=== PATIENT | male | born 1950 | race Caucasian/White ===

== ENCOUNTER 2021-03-08 12:34 | Outpatient (CLI) | payer OTHER | END 2021-03-08 23:59 | disposition home or self-care (01) | LOC: LAB 12:34 | PROVIDERS: ATTEND Specialist | DX: Z01.812 Encounter for preprocedural laboratory examination (principal); Z20.822 Contact with and (suspected) exposure to COVID-19 | CPT/HCPCS: C9803; U0003 ==

== ENCOUNTER 2021-03-14 05:03 | Inpatient (IN) | payer OTHER ==
[~2021-03-14] VITALS: Ht 162.6 cm; Wt 57.6 kg
[~2021-03-14 05:03] MED LIST: ANESTHESIA TRAY IN PYXIS 1 EA TRAY MC ONE; BUPIVACAINE 0.5 % PF 150 MG/30 ML VIAL ONE; POLYMYXIN B SULFATE 500,000 UNITS ONE
--- NOTE | 2021-03-14 05:10 | NUR ---
PIPE JOINTS SUPERVISOR NOTES PATIENT ARRIVED ON FLOOR FOR RIGHT TOTAL KNEE ARTHROPLASTY SURGERY. PATIENT ALERT/ORIENTED X 4, PT ABLE TO MAKE NEEDS KNOWN. PT AMBULATORY WITH WALKER. PATIENT DENIES MEDICAL HISTORY, NO ALLERGIES, DOESN'T TAKE MEDICATIONS AT HOME. PT STATES HE HAD ONE COVID-19 VACCINE BUT DOESN'T REMEMBER WHICH ONE, PT HAD FLU VACCINE. PT BELONGINGS CHARTED AND ACCOUNTED FOR. PATIENT NPO SINCE 8/ PM. LAST VOID THIS AM AT 0515. ORIENTED PATIENT TO ROOM AND HOW TO USE CALL LIGHT. MRSA SWAB DONE, BOTH NARES. SAFETY MEASURES IN PLACE, CALL LIGHT WITHIN REACH, BED ALARM ON. WILL CONTINUE TO MONITOR
[2021-03-14] MEDS ORDERED: TRANEXAMIC ACID 3,000 MG in SODIUM CHLORIDE IRRIG SOLUTION 70 ML IR ONE (06:30)
[2021-03-14] MEDS ORDERED: MORPHINE SULFATE/PF 10 MG/10ML (1MG/ML) AMPUL ONE (06:38)
[2021-03-14] MEDS ORDERED: FENTANYL PF 100MCG/2ML AMPUL ONE (06:38)
[2021-03-14] MEDS ORDERED: ZOLPIDEM TARTRATE 5 MG TABLET PO PRN (09:30)
[2021-03-14] MEDS ORDERED: ACETAMINOPHEN 325 MG TABLET PO PRN (09:30)
[2021-03-14] MEDS ORDERED: IV D5/0.45 NACL 1,000 ML IV PRN (09:30)
[2021-03-14] MEDS ORDERED: HYDROCODONE/APAP 5/325MG TABLET PO PRN (09:30)
[2021-03-14] MEDS ORDERED: ONDANSETRON HCL/PF 4 MG/2 ML VIAL IVP PRN ×2 (09:30→10:00)
[2021-03-14] MEDS ORDERED: DOCUSATE SODIUM 250 MG CAPSULE PO PRN (09:30)
[2021-03-14] MEDS ORDERED: BISACODYL SUPP (10 MG) 10 MG/SUPP.RECT SUPP.RECT RC PRN (09:30)
[2021-03-14] MEDS ORDERED: SENNOSIDES 8.6 MG TABLET PO PRN (09:30)
--- NOTE | 2021-03-14 09:30 | NUR ---
RN NOTE PT CAME BACK FROM SURGERY FOR RIGHT TOTAL KNEE ARTHROPLASTY BY DR CHOUDHURY. PT AOX4 , SATTING 97% ON RA, ASKED IF HE WANTED O2 NC BUT REFUSED STATING HE DOESNT NEED IT. PT HAS NO C/O PAIN OR SHORTNESS OF BREATH AT THIS TIME. PT EDUCATED ON S/S OF COMPARTMENTALISM AND TO MOVE EXTREMITY AND TOES NEEDED. EDUCATED ON INCENTIVE SPIROMETER USE AND HOW OFTEN. PT DENIED PAIN AT THIS TIME BUT INFORMED IF HE HAS ANY PAIN HE WILL LET US KNOW. CALL LIGHT WITHIN REACH AND EDUCATED ON USE, FAMILY AT BEDSIDE.
[2021-03-14 10:00] VITALS: BP 124/84
[2021-03-14] MEDS ORDERED: oxyCODONE IR immediate release 5 MG PO PRN (10:00)
[2021-03-14] MEDS ORDERED: ANESTHESIA TRAY IN PYXIS 1 EA TRAY MC ONE (10:50)
[2021-03-14] MEDS: DRONABINOL (2.5 MG) 2.5 MG CAPSULE PO SCH (11:20)
[2021-03-14] MEDS ORDERED: CLONIDINE HCL 0.1 MG TABLET PO PRN (11:30)
[2021-03-14] MEDS ORDERED: diphenhydrAMINE HCL 25 MG CAPSULE PO PRN (11:30)
[2021-03-14] MEDS ORDERED: MAG HYDROX/AL HYDROX/SIMETH 30 ML UDC PO PRN (11:30)
[2021-03-14] MEDS ORDERED: MENTHOL/CETYLPYRD (CEPACOL) 1 LOZ LOZENGE PO PRN (11:30)
[2021-03-14] MEDS: ANCEF 1 GM/50 ML D5W IV SCH ×2 (14:18→22:07)
[2021-03-14 16:00] VITALS: BP 104/68
[2021-03-14] MEDS: DOCUSATE SODIUM 100 MG CAPSULE PO SCH (16:49)
--- NOTE | 2021-03-14 19:55 | NUR ---
MS RN Opening Notes Patient was last seen awake in his room walking. Patient's alert and oriented x4. Patient's on room air with no respiratory distress noted. Patient's in no acute distress at this time. Safety measures in place: Bed locked, bed alarm on, side rails up x3, and call light within reach of the patient. Will continue to monitor the patient.
[2021-03-14 20:00] VITALS: BP_SYST 106; BP_SYST 108; BP_DIAS 69; BP_DIAS 78
[2021-03-14] MEDS: FAMOTIDINE (20 MG) 20 MG TABLET PO SCH (21:08)
[2021-03-15 06:15] LABS: CALCIUM, SERUM 7.7 mg/dL (8.5-10.1); CREATININE 0.8 mg/dL (0.6-1.3); POTASSIUM 3.9 mmol/L (3.5-5.1)
[2021-03-15 06:52] LABS: BASOPHILS % (AUTO) 0.2 % (0.0-2.0); EOSINOPHILS % (AUTO) 0.6 % (0.0-6.0); HEMATOCRIT 33 % (39-51); HEMOGLOBIN 11.5 g/dL (13.5-17.5); MEAN CORPUSCULAR HGB CONC 35 g/dl (31.0-36.0); MEAN CORPUSCULAR VOLUME 89 fL (80-96); MONOCYTES # (AUTO) 0.9 K/uL (0.1-1.30); MONOCYTES % (AUTO) 15.1 % (2.0-12.0); NEUTROPHILS # (AUTO) 4.1 K/uL (1.8-8.9); NEUTROPHILS % (AUTO) 68.1 % (43.0-81.0); PLATELET COUNT (AUTO) 246 K/uL (150-450); RED BLOOD CELL COUNT(AUTO) 3.71 MIL/uL (4.5-6.0)
[2021-03-15 07:11] LABS: THYROID STIMULATING HORMONE 0.759 uIU/mL (0.358-3.74)
--- NOTE | 2021-03-15 08:00 | NUR ---
MS RN Opening Notes Report received. Assessment complete. Received pt in stable condition. Vss, afebrile, no sob noted. Patient's alert and oriented x4, able to make needs known. Patient is stable on room air. Iv to LAC patent and infusing D%1/2 NS at 125ml/hr. Schmidt catheter in place, patent and draining clear yellow urine. Safety measures in place: Bed locked, bed alarm on, side rails up x2, and call light within reach of the patient. Will continue to monitor the patient.
[2021-03-15 08:18] VITALS: BP 118/76
[2021-03-15] MEDS: DRONABINOL (2.5 MG) 2.5 MG CAPSULE PO SCH (08:42)
[2021-03-15] MEDS: FAMOTIDINE (20 MG) 20 MG TABLET PO SCH ×2 (08:42→20:18)
[2021-03-15] MEDS: ASPIRIN 325 MG TABLET PO SCH (08:42)
[2021-03-15] MEDS: DOCUSATE SODIUM 100 MG CAPSULE PO SCH ×2 (08:42→16:33)
[2021-03-15] MEDS ORDERED: OXYC-133 PO (09:07)
--- NOTE | 2021-03-15 09:46 | NUR ---
RN NOTE: EMESIS 30 CC EMESIS. MEDICATED WITH ZOFRAN 2MG IVP.
[2021-03-15 10:32] LABS: EOSINOPHILS % (MANUAL) 1 % (0-4); LYMPHOCYTES % (MANUAL) 12 % (16-48); MONOCYTES % (MANUAL) 17 % (0-11.0); NEUTROPHILS % (MANUAL) 70 (42-76)
[2021-03-15] MEDS: HYDROMORPHONE 1 MG/1 ML DISP.SYRIN IV PRN ×2 (10:39→14:37)
--- NOTE | 2021-03-15 10:40 | NUR ---
RN NOTE: PAIN PT C/O 04/15 RIGHT KNEE PAIN AFTER AMBULATION. REQUESTING PAIN MEDICATION. MEDICATED WITH DILAUDID 1MG IVP.
[2021-03-15] MEDS ORDERED: TAMSULOSIN 0.4 MG CAP.SR.24H PO ONE (11:04)
[2021-03-15] MEDS ORDERED: IV NS 0.9% 1,000 ML IV ONE (11:30)
--- NOTE | 2021-03-15 11:30 | NUR ---
RN Note: Schmidt catheter d/c'd
[2021-03-15] MEDS: TAMSULOSIN 0.4 MG CAP.SR.24H PO SCH ×2 (11:42→21:36)
[2021-03-15] MEDS ORDERED: ASPI-869 PO (13:11)
--- NOTE | 2021-03-15 14:38 | NUR ---
RN NOTE: PAIN PT C/O 04/15 RIGHT KNEE PAIN. REQUESTING PAIN MEDICATION. MEDICATED WITH DILAUDID 0.5 MG IVP PRN.
[2021-03-15 16:32] VITALS: BP 152/97
[2021-03-15] MEDS: oxyCODONE IR immediate release 5 MG PO PRN ×2 (16:34→20:18)
--- NOTE | 2021-03-15 16:34 | NUR ---
RN NOTE: PAIN PT C/O 02/12 RIGHT KNEE PAIN. MEDICATED WITH OXYCODONE 10 MG PO PRN.
[2021-03-15 16:51] LABS: CALCIUM, SERUM 7.5 mg/dL (8.5-10.1); CREATININE 0.7 mg/dL (0.6-1.3); POTASSIUM 3.5 mmol/L (3.5-5.1)
[2021-03-15 18:01] LABS: THYROID STIMULATING HORMONE 1.218 uIU/mL (0.358-3.74)
--- NOTE | 2021-03-15 18:49 | NUR ---
RN NOTE: UA COLLECTED AND SENT TO LAB.
--- NOTE | 2021-03-15 19:00 | NUR ---
Patient in room A&Ox4. Family at bedside. educated about hyponatremia. Pt states pain to R knee is tolerable. no other issues at this time. will monitor closely.
[2021-03-15 20:00] VITALS: BP 139/96
[2021-03-15 22:04] LABS: BILIRUBIN,URINE NEGATIVE (NEGATIVE); COLOR,URINE YELLOW (YELLOW); LEUKOCYTE ESTERASE ,URINE NEGATIVE (NEGATIVE); NITRITE, URINE NEGATIVE (NEGATIVE); PH,URINE 7.5 (5.0-8.0); PROTEIN,URINE NEGATIVE (NEGATIVE); UGLUCOSE 100 MG/DL mg/dL (NEGATIVE); UROBILINOGEN,URINE 0.2 EU/dL (0.2)
[2021-03-15 22:07] LABS: BACTERIA,URINE None seen /HPF (None Seen); MUCUS,URINE Few /LPF (None Seen); RBC,URINE 0-2 /HPF (0-2); SQUAMOUS EPITHELIAL CELL,UR None Seen /HPF (None Seen); URINE AMORPHOUS PHOSPHATES Few /HPF (None Seen); WBC,URINE 0-2 /HPF (0-3)
--- NOTE | 2021-03-16 00:30 | NUR ---
Patient continues to have fever despite tylenol and cooling measures. HR also continues to go up. currently 113. certified nurse practitioner made aware with new order vanco 1g IV NOW and starting in AM Vancomycin IV pharmacy to dose.
--- NOTE | 2021-03-16 01:42 | NUR ---
reassessed temp 99.0
[2021-03-16] MEDS ORDERED: VANCOMYCIN 1 GM in IV D5W 250 ML IV ONE (02:00)
[2021-03-16] MEDS ORDERED: VANCOMYCIN 1 GM VIAL ONE (02:24)
--- NOTE | 2021-03-16 07:00 | NUR ---
Patient tolerated IV ABX well. Only asked for pain medication x1. states that pain has been tolerable since. Fever resolved.
[2021-03-16] MEDS: ASPIRIN 325 MG TABLET PO SCH (09:01)
[2021-03-16] MEDS: FAMOTIDINE (20 MG) 20 MG TABLET PO SCH ×2 (09:01→21:06)
[2021-03-16] MEDS: DRONABINOL (2.5 MG) 2.5 MG CAPSULE PO SCH (09:01)
[2021-03-16] MEDS: DOCUSATE SODIUM 100 MG CAPSULE PO SCH ×2 (09:01→16:34)
[2021-03-16] MEDS ORDERED: oxyCODONE IR immediate release 5 MG PO ONE (11:09)
[2021-03-16 11:43] LABS: CALCIUM, SERUM 7.6 mg/dL (8.5-10.1); CREATININE 0.8 mg/dL (0.6-1.3); POTASSIUM 3.9 mmol/L (3.5-5.1)
[2021-03-16] MEDS ORDERED: VANCOMYCIN 0.75 GM in IV D5W 250 ML IV SCH (14:00)
[2021-03-16 20:00] VITALS: BP 125/73
--- NOTE | 2021-03-16 20:00 | NUR ---
RN OPENING RECEIVED PATIENT IN BED. A/OX4. NO S/S OF APPARENT DISTRESS IN ROOM AIR. NO C/O PAIN AT THIS TIME. POTASSIUM CHLORIDE RUNNING AT THIS TIME. SAFETY IN PLACE. WILL CONTINUE TO MONITOR.
[2021-03-16] MEDS: oxyCODONE IR immediate release 5 MG PO PRN (21:47)
[2021-03-16] MEDS: TAMSULOSIN 0.4 MG CAP.SR.24H PO SCH (21:48)
--- NOTE | 2021-03-17 00:48 | NUR ---
MS RN NOTE CRITICAL SODIUM LEVEL REPORTED TO DR. LOPEZ AT THIS TIME. LAB VALUE PREVIOUSLY LOW. NO NEW ORDERS AT THIS TIME. LAB VALUE ASSESSMENT FILLED UP IN INTERVENTIONS.
[2021-03-17] MEDS: HYDROMORPHONE 1 MG/1 ML DISP.SYRIN IV PRN (02:08)
--- NOTE | 2021-03-17 02:13 | NUR ---
MS RN NOTE PATIENT C/O 8/10 PAIN. GIVEN DILAUDID 0.5 MG. WILL REASSESS.
[2021-03-17] MEDS: Potassium Chloride 20 MEQ in IV NS 0.9% 1,000 ML IV PRN ×2 (04:30→21:37)
[2021-03-17] MEDS: oxyCODONE IR immediate release 5 MG PO PRN (06:17)
--- NOTE | 2021-03-17 06:17 | NUR ---
MS RN NOTES PATIENT C/O 7/10 PAIN. GIVEN OXYCODONE 10 MG PRN AT THIS TIME. WILL REASSESS.
[2021-03-17 06:32] LABS: BASOPHILS % (AUTO) 0.2 % (0.0-2.0); EOSINOPHILS % (AUTO) 0.5 % (0.0-6.0); HEMATOCRIT 30 % (39-51); HEMOGLOBIN 10.7 g/dL (13.5-17.5); LYMPHOCYTES # (AUTO) 0.5 K/uL (0.8-4.8); LYMPHOCYTES % (AUTO) 10.4 % (20.0-44.0); MEAN CORPUSCULAR HGB CONC 36 g/dl (31.0-36.0); MEAN CORPUSCULAR VOLUME 86 fL (80-96); MONOCYTES # (AUTO) 0.5 K/uL (0.1-1.30); MONOCYTES % (AUTO) 10.7 % (2.0-12.0); NEUTROPHILS # (AUTO) 3.7 K/uL (1.8-8.9); NEUTROPHILS % (AUTO) 78.2 % (43.0-81.0); PLATELET COUNT (AUTO) 204 K/uL (150-450); RED BLOOD CELL COUNT(AUTO) 3.47 MIL/uL (4.5-6.0); WHITE BLOOD COUNT (AUTO) 4.8 K/uL (4.3-11.0)
--- NOTE | 2021-03-17 06:51 | NUR ---
MS RN CLOSING NOTE 315 PATIENT IN BED. A/OX4. NO S/S OF APPARENT DISTRESS. NO C/O PAIN AT THIS TIME PAIN MANAGED WITH MEDICATIONS. POTASSIUM CHLORIDE IN NS RUNNING AT THIS TIME. ALL NEEDS ATTENDED. ALL SCHED MEDICATION ADMINISTERED. SAFETY KEPT IN PLACE THE WHOLE SHIFT. NO SIGNIFICANT CHANGE SINCE LAST SHIFT. WILL ENDORSE CARE TO MORNING SHIFT RN.
[2021-03-17 06:55] LABS: CALCIUM, SERUM 7.7 mg/dL (8.5-10.1); CREATININE 0.7 mg/dL (0.6-1.3); MAGNESIUM 1.9 mg/dL (1.8-2.4)
--- NOTE | 2021-03-17 07:30 | NUR ---
RN-NOTES RECEIVED PATIENT LYING IN BED AWAKE.ALERT X4 CALM,NO ACUTE DISTRESS NOTED. LFA IV SITE AND MIDLINE ON NOHELIA INTACT NO S/S OF COMPLICATION NOTED AT THIS TIME. WILL CONT, MONITORING FOR SAFETY .
[2021-03-17 08:00] VITALS: BP 94/63
[2021-03-17] MEDS: ASPIRIN 325 MG TABLET PO SCH (09:23)
[2021-03-17] MEDS: DOCUSATE SODIUM 100 MG CAPSULE PO SCH ×2 (09:23→17:16)
[2021-03-17] MEDS: FAMOTIDINE (20 MG) 20 MG TABLET PO SCH ×2 (09:23→21:37)
[2021-03-17] MEDS: DRONABINOL (2.5 MG) 2.5 MG CAPSULE PO SCH (09:23)
[2021-03-17 16:00] VITALS: BP 104/61
--- NOTE | 2021-03-17 18:16 | NUR ---
RN-NOTES PATIENT LYING IN BED WATCHING TV ,NO ACUTE DISTRESS NOTED. PATIENT IV LINE ON LAC INTACT NO S/S OF COMPLICATION NOTED AT THE SITE AT THIS TIME. PATIENT A/O X4 ABLE TO AMBULATE IN THE BATHROOM USING WALKER. ENCOURAGED TO REPOSITION 2 HR TO PREVENT FROM DEVELOPING SORES. PATIENT VERBALIZED UNDERSTANDING. CALL LIGHT WITHIN REACH.ALL NEEDS ATTENDED AND ANTICIPATED. WILL ENDORSE TO INCOMING NURSE FOR CONTINUITY OF CARE..
[2021-03-17 20:00] VITALS: BP 118/74
--- NOTE | 2021-03-17 20:00 | NUR ---
MS RN OPENING NOTE PATIENT A/OX4; ABLE TO MAKE NEEDS KNOWN. TOLERATING ROOM AIR WELL WITH NO SOB. DENIES PAIN OR DISCOMFORT AT THIS TIME. LAC #20G S/L; PATENT AND INTACT. SAFETY MEASURES IN PLACE: BED IN LOWEST LOCKED POSITION, SIDE RAILS UPX2, CALL LIGHT WITHIN EASY REACH, BED ALARMS ON. PATIENT IN STABLE CONDITION; WILL CONT. PLAN OF CARE.
[2021-03-17] MEDS: TAMSULOSIN 0.4 MG CAP.SR.24H PO SCH (21:37)
--- NOTE | 2021-03-17 22:18 | NUR ---
MS RN NOTE - CONSTIPATION PT C/O CONSTIPATION. LAST BM WAS 03/15/21. ADMINISTERED SENNA ORDERED. WILL REASSESS FOR BM THROUGHOUT THE SHIFT.
--- NOTE | 2021-03-18 06:47 | NUR ---
MS RN CLOSING NOTE PATIENT A/OX4; ABLE TO MAKE NEEDS KNOWN. TOLERATING ROOM AIR WELL WITH NO SOB. DENIES PAIN OR DISCOMFORT AT THIS TIME. LAC #20G KCL 20MEQ IN NS @100ML/HR; PATENT AND INTACT. SAFETY MEASURES IN PLACE: BED IN LOWEST LOCKED POSITION, SIDE RAILS UPX2, CALL LIGHT WITHIN EASY REACH, BED ALARMS ON. PATIENT IN STABLE CONDITION; WILL ENDORSE CONT. PLAN OF CARE TO ONCOMING MORNING RN.
[2021-03-18 07:12] LABS: BASOPHILS % (AUTO) 0.3 % (0.0-2.0); EOSINOPHILS % (AUTO) 0.7 % (0.0-6.0); HEMATOCRIT 27 % (39-51); HEMOGLOBIN 9.9 g/dL (13.5-17.5); LYMPHOCYTES # (AUTO) 0.5 K/uL (0.8-4.8); LYMPHOCYTES % (AUTO) 10.6 % (20.0-44.0); MEAN CORPUSCULAR HGB CONC 37 g/dl (31.0-36.0); MEAN CORPUSCULAR VOLUME 88 fL (80-96); MONOCYTES # (AUTO) 0.6 K/uL (0.1-1.30); MONOCYTES % (AUTO) 14.4 % (2.0-12.0); NEUTROPHILS # (AUTO) 3.1 K/uL (1.8-8.9); PLATELET COUNT (AUTO) 264 K/uL (150-450); RED BLOOD CELL COUNT(AUTO) 3.08 MIL/uL (4.5-6.0); WHITE BLOOD COUNT (AUTO) 4.3 K/uL (4.3-11.0)
[2021-03-18 07:35] LABS: CALCIUM, SERUM 7.8 mg/dL (8.5-10.1); CREATININE 0.7 mg/dL (0.6-1.3); MAGNESIUM 2.1 mg/dL (1.8-2.4); POTASSIUM 3.8 mmol/L (3.5-5.1)
[2021-03-18] MEDS: ASPIRIN 325 MG TABLET PO SCH (09:23)
[2021-03-18] MEDS: DOCUSATE SODIUM 100 MG CAPSULE PO SCH (09:23)
[2021-03-18] MEDS: FAMOTIDINE (20 MG) 20 MG TABLET PO SCH (09:23)
[2021-03-18] MEDS: DRONABINOL (2.5 MG) 2.5 MG CAPSULE PO SCH (09:24)
[2021-03-18 09:44] VITALS: BP 119/76
--- NOTE | 2021-03-18 15:00 | NUR ---
MS DISCHARGE NOTE: DISCHARGED PT HOME WITH HIS SON KANDI PRIVATE CAR. PROPERTY RETURNED. PRESCRIPTIONS SENT ELECTRONICALLY TO PREFERRED PHARMACY. VSS. NO PAIN OR DISTRESS AT TIME OF DISCHARGE. EXIT CARE TEACHINGS PROVIDED
== END 2021-03-18 15:00 | disposition home health service (06) | DRG 470 ==
LOC: DS 05:03 → MED 05:12
PROVIDERS: ADMIT Nurse Practitioner Acute Care; ATTEND Nurse Practitioner Family
PROC: 0SRC0J9 Replacement of Right Knee Joint with Synthetic Substitute, Cemented, Open Approach (ICD-10-PCS; principal; 2021-03-14)
DX: M17.11 Unilateral primary osteoarthritis, right knee (principal); E87.1 Hypo-osmolality and hyponatremia; R03.0 Elevated blood-pressure reading, without diagnosis of hypertension; Y99.0 Civilian activity done for income or pay; W19.XXXA Unspecified fall, initial encounter; Z79.82 Long term (current) use of aspirin; Z79.899 Other long term (current) drug therapy
CPT/HCPCS: 36415; 80048-TC; 80202-TC; 81001; 82533; 82962-TC; 83735-TC; 84295-TC; 84300-TC; 84439-TC; 84443-TC; 85025-TC; 87081-TC; 88305-TC; 88311-TC; 97110-TC; 97112-TC; 97116-TC; 97530-TC; 97760-TC; A4217; G0378; J0690; J1100; J1170; J1885; J2274; J2405; J2704; J3010; J3370; J3480; J3490; J7030; J7042; J7050; J7060; Q0167

== ENCOUNTER 2021-09-22 09:00 | Outpatient (CLI) | payer OTHER ==
[~2021-09-22 09:00] MED LIST changes: -ANESTHESIA TRAY IN PYXIS 1 EA TRAY MC ONE; +ASPI-869 PO; -BUPIVACAINE 0.5 % PF 150 MG/30 ML VIAL ONE; +OXYC-133 PO; -POLYMYXIN B SULFATE 500,000 UNITS ONE
[2021-10-01] MEDS ORDERED: RIVA10TA PO (13:25)
== END 2021-09-22 23:59 | disposition home or self-care (01) ==
LOC: LAB 09:00
PROVIDERS: ATTEND Specialist
DX: Z01.812 Encounter for preprocedural laboratory examination (principal); Z20.822 Contact with and (suspected) exposure to COVID-19
CPT/HCPCS: C9803; U0003

== ENCOUNTER 2021-09-29 05:29 | Inpatient (IN) | payer OTHER ==
[2021-09-29] VITALS (8 sets, daily range): BP systolic 102–152; BP diastolic 60–102
[~2021-09-29] VITALS: Ht 162.6 cm; Wt 60.8 kg
--- NOTE | 2021-09-29 07:00 | NUR ---
MS OPHTHALMIC SURGEON NOTE PATIENT ADMITTED FOR DAY SURGERY OF LEFT TOTAL KNEE ARTHROPLASTY. PATIENT ALERT/ORIENTED X 4, PT ABLE TO MAKE NEEDS KNOWN. PT STABLE ON RA, NO S/S OF DISTRESS OR SOB NOTED, BREATHING EVEN AND UNLABORED. PT DENIES MEDICAL HISTORY OTHER THAN RIGHT TOTAL KNEE ARTHROPLASTY SEVERAL MONTHS AGO. CONSENT FORMS SIGNED FOR PROCEDURE, ANESTHESIA, AND BLOOD. MRSA SWAB DONE, BLOOD SUGAR CHECKED AND IV INSERTED ON RIGHT AC #18G INTACT AND FLUSHING WELL. PATIENT BELONGINGS DOCUMENTED AND PLACED IN CHART. PATIENT STATED HE WISHES TO BE FULL CODE. PATIENT DENIES ALLERGIES TO MEDICATION OR FOOD. SAFETY MEASURES IN PLACE: CALL LIGHT WITHIN REACH, SIDE RAILS UP X 2, BED LOCKED IN LOW POSITION. WILL CONTINUE TO MONITOR PATIENT
[2021-09-29] MEDS ORDERED: HYDROMORPHONE INJ 2 MG/ML DISP.SYRIN ONE (07:02)
[2021-09-29] MEDS ORDERED: FENTANYL PF 100MCG/2ML AMPUL ONE ×2 (07:02→11:21)
[2021-09-29] MEDS ORDERED: MIDAZOLAM HCL 2 MG/2ML VIAL ONE (07:03)
[2021-09-29] MEDS ORDERED: FAMOTIDINE/PF INJ 20 MG/2 ML VIAL IV ONE (07:03)
--- NOTE | 2021-09-29 07:27 | NUR ---
MS RN NOTE PATIENT TAKEN TO SURGERY IN STABLE CONDITION
--- NOTE | 2021-09-29 07:30 | NUR ---
RN Opening Note Received patient in bed, AO x 4 able to responds all stimuli. Patient going surgery for left total knee arthroplasty by Dr. Elliott. Will continue to monitor.
[2021-09-29] MEDS ORDERED: TRANEXAMIC ACID 3,000 MG in SODIUM CHLORIDE IRRIG SOLUTION 70 ML IR ONE (08:00)
[2021-09-29] MEDS ORDERED: BUPIVACAINE 0.5 % PF 150 MG/30 ML VIAL ONE (08:40)
[2021-09-29] MEDS ORDERED: POLYMYXIN B SULFATE 500,000 UNITS ONE (08:40)
[2021-09-29] MEDS ORDERED: DOCUSATE SODIUM 250 MG CAPSULE PO PRN (11:00)
[2021-09-29] MEDS ORDERED: ONDANSETRON HCL/PF 4 MG/2 ML VIAL IV PRN (11:00)
[2021-09-29] MEDS ORDERED: IV D5/0.45 NACL 1,000 ML IV PRN (11:00)
[2021-09-29] MEDS ORDERED: ACETAMINOPHEN 325 MG TABLET PO PRN ×2 (11:00)
[2021-09-29] MEDS ORDERED: SENNOSIDES 8.6 MG TABLET PO PRN (11:00)
[2021-09-29] MEDS ORDERED: ZOLPIDEM TARTRATE 5 MG TABLET PO PRN (11:00)
[2021-09-29] MEDS ORDERED: HYDROCODONE/APAP 5/325MG TABLET PO PRN (11:00)
[2021-09-29] MEDS ORDERED: BISACODYL SUPP (10 MG) 10 MG/SUPP.RECT SUPP.RECT RC PRN (11:00)
[2021-09-29] MEDS ORDERED: ONDANSETRON HCL/PF 4 MG/2 ML VIAL ONE (11:30)
--- NOTE | 2021-09-29 12:00 | NUR ---
Patient back form procedure for left total knee arthroplasty, vital sign documented in the intervention.
[2021-09-29] MEDS ORDERED: diphenhydrAMINE HCL 25 MG CAPSULE PO PRN (12:08)
[2021-09-29] MEDS ORDERED: MENTHOL/CETYLPYRD (CEPACOL) 1 LOZ LOZENGE PO PRN (12:08)
[2021-09-29] MEDS ORDERED: MAG HYDROX/AL HYDROX/SIMETH 30 ML UDC PO PRN (12:08)
[2021-09-29] MEDS ORDERED: CLONIDINE HCL 0.1 MG TABLET PO PRN (12:08)
[2021-09-29] MEDS: IV NS 0.9% 1,000 ML IV SCH ×2 (15:21→21:57)
[2021-09-29] MEDS: ANCEF 1 GM/50 ML D5W IV SCH ×4 (15:22→23:08)
--- NOTE | 2021-09-29 16:36 | NUR ---
Discharge Planning: SS Consult requested for safe DC plan. The pt. is a 70 year old male who came in for "DAY SURGERY OF LEFT TOTAL KNEE ARTHROPLASTY" per EMR. SW met with pt. bedside. The pt. is alert & oriented x 4 and makes good eye contact. Pt. denies SI/HI and denies hallucinations. The pt. states he lives at [address] [place] [address]. [facility] [id number]; with his , Kaykay Helton [phone]. Per pt. is out of town for a few days but his son, Karlos Helton [phone] who also resides in the home can provide transportation when ready for DC. SW notified his nurse of DC plan. Nurse stated there is no discharge order at this time. Pt. states he has a wheelchair at home. Per pt. he receives SSI. Patient states he drinks about a 12 pack of beer per week and goes some tie without drinking and it is not a problem for him. SW informed him that CM may order HH for PT/OT as needed. Pt. is agreeable. SW will remain available as needed. SW provide pt. with the following resources and the pt. is agreeable. ABUSE PREVENTION: ELDER ABUSE HOTLINE (26/02) ADULT PROTECTIVE SERVICES HOTLINE LONG-TERM CARE [facility] Region AREA ON AGING (HOTLINE) ADULT DAY HEALTH CARE CARE CENTERS: Private pay or [facility] funded adult day care [place] [facility] , [facility] , [facility] Adult Care Center , [facility] Adult Day Health Care , [facility] Adult Day Health Care , [facility] Adult Daycare Center , [facility] , [facility] Adult [place] , [place] ALZHEIMERS DISEASE/DEMENTIA: Alzheimers Association Helpline [facility] www.alz.org/[facility] Department of Aging www.lacity.org Family Caregiver [place] www.caregiver.org [place] Caregiver Resources Center/Family Support www.[facility].org CANCER RESOURCES: Japanese Cancer Society www.cancer.org Cancer Support Community www.CancerSupportVvsb.org: CancerCare www.cancercare.org [facility] Cancer Support [place] www.[facility].org ALLEGHANY HEALTH HEALTH ASSOCIATIONS: AARP www.aarp.org ALS Association (ask for ) www.als.org Japanese Diabetes Association www.diabetes.org Japanese Heart Association www.heart.org Japanese Lung Association www.lungusa.org Japanese Parkinson Disease Association www.apdaparkinson.org Japanese Coats , www.redcross.org Arthritis Foundation www.arthritis.org Crohns & Colitis Foundation of Japanese www.ccfa.org/chapters/jo National Multiple Sclerosis Society www.nationalmssociety.org Myasthenia Gravis Foundation www.myasthenia-ca.org National Stroke Association www.stroke.org CONSERVATORSHIP & GUARDIANSHIP: AARP Sol Hand Legal Services Center for Health Care Rights Eldercare Information and Referral Channel Cementer Foundation [facility]: [facility] Bar Referral Service [facility] Legal Services Office of the Public Guardian Martin EYESIGHT DISORDER RESOURCES: Japanese Macular Degeneration Foundation [facility] www.ballad healthtitlutsen.org GRIEF AND BEREAVEMENT RESOURCES: The [place] , [facility] THE HOPE Connection , [facility] Bereavement Center , Jeffrey HEARING DISORDER RESOURCES: [place] Telephone Access Program Deaf and Disabled Telecommunications Program www.ddtp.[facility].ca.gov HearRx Hearing Centers ([place]) Better Hearing Systems , Jeffrey GLAD ([facility] Agency on Deafness) V/ TTY; Pattern Keeper , [facility] Hearing [facility] -low income hearing aid assistance www.or[facility] dr. p. phillips hospitalfoundation.org [place] [facility] Care , [place] HELP AT HOME CAREGIVER SUPPORT: In Home Support Services (Must have Medi-Wolfgang to be eligible) *Ask for a list of agencies that provide services to assist with care in the home. Local Senior Centers also have listings of care providers. HOME SAFETY MODIFICATIONS AND EQUIPMENT: Senior centers have additional referrals. [place] Housing and Community Investment Dept. Handyworker Program (low income) or Visit http://hcidla.lacity.org/uhv-gdrpul-en for more information National Seating and Mobility and/or ; Forever Active www.foreveractivemed.com Stay Home Safe www.Stayhomesafe.com LIFE ALERT RESPONSE SYSTEM: mana.bo 461-101-4142 www. CLOUD SYSTEMS Life Alert 379-696-8433 www.Everwise Life Station 366-384-2804 www.Hezmedia Interactive Safe Return 947-954-7370 www.alz.or/safereturn Cell Phones for Seniors www.walkby MEALS AND FOOD PROGRAMS: [place] Meals on Wheels [phone] Bell Meals on Wheels [phone] [facility] [phone] [place] to the Homebound [phone] [place] to the Homebound [phone] [facility] to the Homebound [phone] [facility] to the Homebound [phone] [facility] [phone] [facility] [phone] ONE Generation [phone] [facility] [phone] [facility] [phone] Meals on Wheels [phone] For all ages: $6.85/ meal w side. Delivered M-F from 10 am-1pm. Application and payment is done over the phone. Frozen meals available for weekends. Emergency Food [facility] [phone] [facility] Glazier Apprentice [phone] [facility] [phone] Main Line Health/Main Line Hospitals- Brown bag lunches [phone] [facility] [phone] MEAL/GROCERY DELIVERY PROGRAMS: [facility] Gourmet Meals [phone]- [facility] [phone]- [facility] Magic Kitchen [phone] Moms Meals [phone] (ask [place] for Discount Select grocery stores may provide delivery. MEDICAL INSURANCE SUPPORT SERVICES: Center for Health Care Rights [phone] Health Insurance Counseling/Advocacy Programs (HICAP)-Must have Medicare. Offers counseling for Medi-Wolfgang eligibility [phone] Department of Public Glazier Apprentice [phone] www.[facility].ca.gov Medicare 525-789-3470 www.socialsecurity.org Social Security [phone] SENIOR ACTIVITY PROGRAMS: *Contact a local senior center, adult school, recreation facility or community [facility] for education, fitness, recreation, and social programs. Aquatic Therapy and Adapted Exercise programs through [facility] [phone] Encore at [facility] [phone] www.[facility]/encore U- Senior Friends [phone] [place] Senior Programs 789-666-4600 www.oasisnet.org Suddenly 65 www..com SENIOR CENTERS: [facility] [phone] [facility] [phone] [facility] [phone] [facility] [phone] [facility] [phone] [facility] [phone] [facility] [phone] [facility] [phone] One GenerationCh[facility] [phone] [facility] [phone] [facility] [phone] [facility] [phone] [facility] [phone] TRANSPORTATION: Local [facility] may have applications for transportation programs and additional resources. ACCESS Services [phone] Transportation for seniors and disabled persons 7 days a week requiring 254 hr. advance reservation. Must apply and register for program dmitry eligible. Relux RIDretsCloud [phone] or [phone] Transportation for seniors and persons with ADA card/metro disabled card in the [facility]. M-F only. Must register for services. ONE GENERATION [phone] Serves 65 years + in conjunction with city ride program. Must be registered with both programs. A to B Transport [phone] Provides wheelchair/gurney van service. Adult Medical Transport [phone] Accepts [facility] with prior authorization. Care Van [phone] Provides wheelchair Transport. [facility] Wide Transportation [phone] Provides gurney service [facility] [phone] Gurney Transport. [facility] Town Transportation [phone] wheelchair & gurney transport [facility]MD Transportation [phone] wheelchair & gurney transport [place] Non-Emergency Transport [phone] wheelchair & gurney transport [facility] Living [place] [phone] Short Term Transportation primarily for adults with disabilities on social security income. Nominal fee may apply and a reservation is required. [facility] Cab [phone] or [phone] [facility] [phone] [place] [address] Referral Services -[phone] For additional programs & services VETERANS RESOURCES: Submissions for Aid and Attendance should be done directly to Federal VA office locatd at : [address] [address] X110 National Caregiver Support Line [phone] [facility] Veterans Services Field Office [phone] [place] Department of Liguori Affairs [phone] Pension Information [phone]
--- NOTE | 2021-09-29 17:13 | NUR ---
Patient discharge to home and given discharge instructions include follow up Dr. Zhang/office address, number, and new medication for pain. Patient in stable condition. Patient refused wheel chair, left facility accompanied by his partner. Addendum: 10/01/21 at 1059 by AKIL VENTURA RN Error
[2021-09-29] MEDS: DOCUSATE SODIUM 100 MG CAPSULE PO SCH (17:48)
--- NOTE | 2021-09-29 18:00 | NUR ---
RN Closing Note Patient is resting in bed, no distress observed. Respiratory even and unlabored on room air. Skin is warm to touch, keep clean/dry. Kept elevated HOB for ensure airway and aspiration precaution, Also lower position of the bed for safety.Given pain medication and discussed with Dr. Cote. Call light within reach, all needs met. will endorse [facility] hospital shift lead.
[2021-09-29] MEDS: HYDROMORPHONE 1 MG/1 ML DISP.SYRIN IV PRN (18:04)
--- NOTE | 2021-09-29 20:20 | NUR ---
RN OPENING NOTES: RECEIVED PATIENT AWAKE IN BED, NO COMPLAIN OF PAIN AND DISCOMFORT AT THIS TIME, BED IN LOW POSITION, CALL LIGHTS WITHIN REACH ON ROOM AIR NO SOB OR ANY RESP DISTRESS WAS OBSERVED, PATIENT WAS S/P LEFT KNEE ARTHROPLASTY WITH IMMOBILIZER NO BLEEDING WAS OBSERVED ON THE SITE, WITH IV LINE AT RAC WITH ONGOING NSS@125ML PER HOUR INFUSING WELL, PATIENT KEPT CLEAN AND DRY ALL NEEDS MET WILL CONTINUE TO MONITOR.
--- NOTE | 2021-09-29 20:24 | NUR ---
CONSULTING BUSINESS DEVELOPER OPENING NOTES: RECEIVED PATIENT SLEEP IN BED COMFORTABLY AROUSABLE TO TACTILE STIMULI, BED IN LOW POSITION, CALL LIGHTS WITHIN REACH, NO COMPLAIN OF PAIN AND DISCOMFORT AT THIS TIME NO FACIAL GRIMACING WAS OBSERVED ON NGT WITH JEVITY 1.2 @45CC PER HOUR INFUSING WELL, FLUSH WITH 300 FLUID TID, PATIENT WITH NIURKA PICC LINE SL, ON TELE MONITORING [id number] NO SYMPTOMS WAS OBSERVED, PATIENT ON SANDERS CATHETER WITH 50CC URINE OUTPUT, ON O2 INHALATION AT 2LPM NO SOB WAS OBSERVE, PATIENT KEPT CLEAN AND DRY ALL NEEDS MET WILL CONTINUE TO MONITOR.
[2021-09-29] MEDS: FAMOTIDINE (20 MG) 20 MG TABLET PO SCH (21:57)
[2021-09-29] MEDS: TAMSULOSIN 0.4 MG CAP.SR.24H PO SCH (21:57)
[2021-09-29] MEDS: RIVAROXABAN 10 MG TABLET PO SCH (23:10)
[2021-09-29] MEDS: oxyCODONE IR immediate release 5 MG PO PRN (23:20)
[2021-09-30] MEDS: HYDROMORPHONE 1 MG/1 ML DISP.SYRIN IV PRN ×3 (02:30→19:37)
[2021-09-30] MEDS: IV NS 0.9% 1,000 ML IV SCH ×3 (05:56→21:06)
[2021-09-30] MEDS: oxyCODONE IR immediate release 5 MG PO PRN ×3 (06:22→21:06)
--- NOTE | 2021-09-30 06:36 | NUR ---
MS RN CLOSING NOTES: PATIENT WAS AWAKE IN BED, BED IN LOW POSITION, CALL LIGHTS WITHIN THE REACH, NO COMPLAIN OF PAIN AND DISCOMFORT AT THIS TIME. PATIENT IS A/OX4 ABLE TO EXPRESS NEEDS ON BR S/P L KNEE ARTHROPLASTY, IV LINE AT RIGHT AC#18 WITH ONGOING NSS@125ML PER HOUR INFUSING WELL, PATIENT KEPT CLEAN AND DRY ALL NEEDS WILL CONTINUE TO MONITOR.
[2021-09-30 07:14] LABS: HEMOGLOBIN 12.6 g/dL (13.5-17.5)
--- NOTE | 2021-09-30 07:30 | NUR ---
RN MS NOTES PT IN BED, AWAKE, ALERT AND ORIENTED, WITH COMPLAINT OF LEFT KNEE PAIN, SOCIAL HUMAN SERVICES ASSISTANTS NURSE ADMINISTERED PAIN MED ORDERED, NOT IN DISTRESS, CALL LIGHT WITHIN REACH, NEEDS ATTENDED.
[2021-09-30 08:00] VITALS: BP 131/87
[2021-09-30] MEDS: FAMOTIDINE (20 MG) 20 MG TABLET PO SCH ×2 (08:44→21:06)
[2021-09-30] MEDS: DOCUSATE SODIUM 100 MG CAPSULE PO SCH ×2 (08:44→16:25)
[2021-09-30] MEDS: DRONABINOL (2.5 MG) 2.5 MG CAPSULE PO SCH (08:44)
[2021-09-30] MEDS: RIVAROXABAN 10 MG TABLET PO SCH (16:25)
--- NOTE | 2021-09-30 18:25 | NUR ---
RN CLOSING NOTES PATIENT ON BED REST S/P LEFT KNEE ARTHROPLASTY, ALERT AND ORIENTED X4. ABLE TO VERBALIZE NEEDS. WITH C/O PAIN ON LEFT KNEE, PRN MEDS GIVEN AND REASSESSED. SEEN BY PAIN MGT AND PT. ON CPM MACHINE, TOLERATED WELL. IV LINE AT RIGHT AC#18 INTACT, NO S/S OF INFECTION NOTED. WITH ONGOING NSS @125ML PER HOUR INFUSING WELL. ALL NEEDS ATTENDED. C/L WITHIN REACH.
--- NOTE | 2021-09-30 19:30 | NUR ---
MS RN OPENING NOTES RECEIVED PATIENT AWAKE IN BED. A/O X4. ABLE TO VERBALIZE NEEDS. PT STABLE ON ROOM AIR. NO SOB OR S/S OF RESPIRATORY DISTRESS NOTED. IV ACCESS RAC 18 GAUGE INTACT AND PATENT, RUNNING NS @ 125 ML/HR. SANDERS CATHETER IN PLACE DRAINING CLEAR YELLOW URINE. SAFETY PRECAUTIONS IN PLACE. BED IN LOWEST LOCKED POSITION, HOB ELEVATED, SIDE RAILS UP X2, AND CALL LIGHT AND TABLE WITHIN REACH. WILL CONTINUE WITH PLAN OF CARE.
--- NOTE | 2021-09-30 19:37 | NUR ---
RN NOTE PT COMPLAINED OF LEFT KNEE PAIN 03/15. ADMINISTERED DILAUDID 0.5 MG FOR SEVERE PAIN ORDERED. VSS. WILL CONTINUE WITH PLAN OF CARE.
[2021-09-30] MEDS: TAMSULOSIN 0.4 MG CAP.SR.24H PO SCH (21:06)
--- NOTE | 2021-09-30 21:06 | NUR ---
RN NOTE PT COMPLAINED OF LEFT KNEE PAIN 5/10. ADMINISTERED OXY IR 10 MG FOR MODERATE PAIN ORDERED. VSS. WILL CONTINUE WITH PLAN OF CARE.
[2021-09-30 21:39] VITALS: BP 139/91
--- NOTE | 2021-09-30 23:31 | NUR ---
RN NOTE PT STATED "CAN I PLEASE HAVE SOMETHING FOR SLEEP". ADMINISTERED AMBIEN 5 MG FOR INSOMNIA. WILL CONTINUE WITH PLAN OF CARE.
[2021-10-01] MEDS: IV NS 0.9% 1,000 ML IV SCH ×2 (05:15→14:00)
--- NOTE | 2021-10-01 06:40 | NUR ---
MS RN CLOSING NOTES PATIENT AWAKE IN BED. A/O X4. ABLE TO VERBALIZE NEEDS. PT STABLE ON ROOM AIR. NO SOB OR S/S OF RESPIRATORY DISTRESS NOTED. IV ACCESS RAC 18 GAUGE INTACT AND PATENT, RUNNING NS @ 125 ML/HR. SANDERS CATHETER IN PLACE DRAINING CLEAR YELLOW URINE, 3500 DRAINED. ALL NEEDS MET AT THIS TIME. SAFETY PRECAUTIONS IN PLACE AT ALL TIMES. BED IN LOWEST LOCKED POSITION, HOB ELEVATED, SIDE RAILS UP X2, AND CALL LIGHT AND TABLE WITHIN REACH. WILL ENDORSE TO ONCOMING NURSE FOR ASHLEY.
[2021-10-01] MEDS: oxyCODONE IR immediate release 5 MG PO PRN (07:24)
--- NOTE | 2021-10-01 07:40 | NUR ---
MS/RN OPENING NOTES RECEIVED PATIENT IN BED. A/O X4. ABLE TO VERBALIZE NEEDS. PT STABLE ON ROOM AIR. NO SOB OR S/S OF RESPIRATORY DISTRESS NOTED. IV ACCESS ON RIGHT AC #18G INTACT AND PATENT, WITH A RUNNING NS @ 125 ML/HR. SANDERS CATHETER IN PLACE DRAINING CLEAR YELLOW URINE. SAFETY PRECAUTIONS IN PLACE AT ALL TIMES. BED IN LOWEST LOCKED POSITION, HOB ELEVATED, SIDE RAILS UP X2, AND CALL LIGHT AND TABLE WITHIN REACH. WILL CONTINUE TO MONITOR PATIENT.
[2021-10-01 08:34] VITALS: BP 141/96
[2021-10-01] MEDS: DRONABINOL (2.5 MG) 2.5 MG CAPSULE PO SCH (09:11)
[2021-10-01] MEDS: DOCUSATE SODIUM 100 MG CAPSULE PO SCH ×2 (09:11→16:39)
[2021-10-01] MEDS: FAMOTIDINE (20 MG) 20 MG TABLET PO SCH (09:11)
[2021-10-01] MEDS: HYDROMORPHONE 1 MG/1 ML DISP.SYRIN IV PRN (11:30)
--- NOTE | 2021-10-01 12:40 | NUR ---
MS/RN NOTES- DISCONTINUE SANDERS CATHETER DC SANDERS CATHETER PER DR. SHIPLEY'S ORDER.
[2021-10-01] MEDS ORDERED: RIVA10TA PO (13:25)
[2021-10-01 16:18] VITALS: BP 117/64
[2021-10-01] MEDS: RIVAROXABAN 10 MG TABLET PO SCH (16:39)
--- NOTE | 2021-10-01 17:23 | NUR ---
MS/SENIOR IT ENGINEER NOTES PATIENT IS ALERT AND ORIENTED X3, ABLE TO MAKE NEEDS KNOWN. AMBULATORY WITH A 4WW. PATIENT IS MEDICALLY STABLE AND MD ORDERED DISCHARGE TO HOME. DISCHARGE PAPERS SIGNED AND ALL BELONGINGS ACCOUNTED FOR. WHEELED PATIENT TO THE LOBBY AND WAS PICKED UP BY THE SON AGAPITO VIA PRIVATE CAR.
[2021-10-13] MEDS ORDERED: ASPIRIN 325 MG TABLET PO SCH (09:00)
== END 2021-10-01 17:10 | disposition home or self-care (01) | DRG 470 ==
LOC: DS 05:29 → MED 05:30
PROVIDERS: ADMIT Nurse Practitioner Acute Care; ATTEND Nurse Practitioner Acute Care
PROC: 0SRD0J9 Replacement of Left Knee Joint with Synthetic Substitute, Cemented, Open Approach (ICD-10-PCS; principal; 2021-09-29)
DX: M17.12 Unilateral primary osteoarthritis, left knee (principal); Z96.651 Presence of right artificial knee joint
CPT/HCPCS: 36415; 82962-TC; 85027-TC; 87081-TC; 97116-TC; 97530-TC; 97760-TC; A4217; C1713; C1776; G0378; J0690; J1170; J2250; J2405; J2704; J3010; J3490; J7030; J7060; L1830; Q0167